=== PATIENT | male | born 1965 | race Caucasian/White ===

== ENCOUNTER 2016-10-11 21:40 | Emergency (ER) | payer OTHER ==
[2016-10-11] MEDS ORDERED: FLUORESCEIN SODIUM 1 MG STRIP OP ONE ×2 (22:00→22:05)
[2016-10-11] MEDS ORDERED: PROPARACAINE 0.5% 15 ML OPHT DROP ONE (22:01)
--- NOTE | 2016-10-11 22:05 | EDPHY ---
General Narrative: CHIEF COMPLAINT: Left middle finger laceration, left eye irritation HISTORY OF PRESENT ILLNESS: Patient complains of laceration to the left middle finger this sustained by a kitchen knife while cutting cheese for his dog. He was cutting when the knife slipped off the cheese and cut the left middle finger, on the radial side posteriorly. Mildly painful. No bleeding at this time. No numbness. Second complaint of left eye irritation. He was cleaning his grill just prior to this when something flew up into his left eye. He feels that was part of the debris from the top the grow. He feels that there is a presence than left eye from this. No difficulty with vision with some eye irritation. No difficulty moving the finger. The laceration does involve the left middle fingernail. Minimal bleeding. Tetanus is up-to-date less than 3 years ago. No other associated complaints or modifying factors. REVIEW OF SYSTEMS: Ten systems reviewed and are negative unless otherwise noted in the HPI PAST MEDICAL HISTORY: Denies any ongoing medical history PAST SURGICAL HISTORY: None SOCIAL HISTORY: Nonsmoker. Lives here locally FAMILY HISTORY: Noncontributory EXAMINATION General Appearance: Alert, no distress Head: normocephalic, atraumatic Eyes: Pupils equal and round, no conjunctival pallor. Mild left conjunctival injection. EOMs intact Cardiovascular: Regular rate. Symmetric radial pulses bilaterally 2+. Neurological: A&O, nonfocal, normal gait. Strength symmetric in both limbs. No wrist drop Skin: Warm and dry, no rash. Superficial laceration to left middle finger distal phalanx involving the nail. This is approximately 0.5 cm in total length. No foreign body. Neurovascular intact Extremities: Mild tenderness of the left middle finger distal phalanx. Range of motion is intact and symmetric. Psychiatric: Mood and affect normal Eye exam: There is small area of fluorescein uptake on the left conjunctiva at 3 o'clock. This is outside the visual field. There is no rust ring. There was a small piece of black debris on the left upper eyelid mucosa. This was easily removed with a sterile cotton swab. There was no rust ring. Lids were everted. DIFFERENTIAL DIAGNOSES: Including but not limited to laceration, abrasion, conjunctival abrasion, corneal abrasion, ocular foreign body MDM: 10:00 p.m. Superficial laceration to distal phalanx of the left middle finger with possible conjunctival or corneal abrasion of the left eye. I have blocked the affected finger. Proceed with irrigation re-evaluation. I will stain the left eye to look for abrasion or foreign body. 10:25 p.m. Finger has been irrigated and I do not appreciate any laceration that needs to be suture repair. I have stain the eye and there is a superficial corneal abrasion to the left of the field of view. There was also 1 small piece of foreign body on the left upper eyelid that was easily removed with a sterile swab. No rust ring. Visual alicea intact. Discharged home with Ocuflox prophylaxis the left eye. We also discussed simple wound care for the left middle finger laceration that does not need to be suture repaired. Follow up with healthcare network consultant. ED precautions discussed. Tetanus is up-to-date. - History Smoking Status: Never smoked - Objective Vital Signs: Initial Vital Signs Temperature (C) 98.4 F 10/11/16 21:44 Heart Rate 63 10/11/16 21:44 Respiratory Rate 18 10/11/16 21:44 Blood Pressure 156/97 H 10/11/16 21:44 O2 Sat (%) 96 10/11/16 21:44 O2 Delivery Mode Room Air Allergies/Adverse Reactions: gabapentin [From Neurontin] Allergy (Verified 10/11/16 21:44) Penicillins Allergy (Verified 10/11/16 21:44) tdap Allergy (Uncoded 10/11/16 21:48) Home Medications: Medication Instructions Recorded NK [No Known Home Meds] 10/11/16 Medications Given: Discontinued Medications Fluorescein Sodium (Psobv-D-Mazqd) 1 mg OP EDNOW ONE Stop: 10/11/16 22:06 Last Admin: 10/11/16 22:09 Dose: 1 mg Ofloxacin (Ocuflox 0.3% Opht Drops Prepack) 1 btl TAKEHOME EDNOW ONE Stop: 10/11/16 22:32 Last Admin: 10/11/16 22:52 Dose: 1 btl Proparacaine HCl (Alcaine 0.5%) 1 drops OP EDNOW ONE Stop: 10/11/16 22:07 Last Admin: 10/11/16 22:09 Dose: 1 drop Departure - Departure Disposition: Home, Routine, Self-Care Clinical Impression: Foreign body of eyelid, left Abrasion of conjunctiva, left Qualifiers: Encounter type: initial encounter Qualified Code(s): S05.02XA - Injury of conjunctiva and corneal abrasion without foreign body, left eye, initial encounter Laceration of left middle finger with damage to nail Qualifiers: Encounter type: initial encounter Foreign body presence: without foreign body Qualified Code(s): S61.313A - Laceration without foreign body of left middle finger with damage to nail, initial encounter Condition: Good Instructions: Ofloxacin (Into the eye), Laceration (ED), Laceration Without Closure (ED) Additional Instructions: 1. Wound care as discussed 2. Left eye drops as discussed 3. Follow up with healthcare network consultant for definitive care Referrals: NONE *PRIMARY CARE P,. [Primary Care Provider] - As per Instructions Rufino Welsh MD [Medical Doctor] - As per Instructions
[2016-10-11] MEDS ORDERED: PROPARACAINE 0.5% 15 ML OPHT DROP OP ONE (22:06)
[2016-10-11] MEDS ORDERED: OFLOXACIN 0.3% SOLN PREPACK OPHT.BTL TAKEHOME ONE (22:31)
[2016-10-11 22:56] VITALS: BP 136/90; PULSE 57; RESP 16; TEMP 98.1; O2SAT 94
== END 2016-10-11 22:56 | disposition home or self-care (01) ==
PROC: 08C1XZZ Extirpation of Matter from Left Eye, External Approach (ICD-10-PCS; principal; 2016-10-11)
DX: S61.313A Laceration without foreign body of left middle finger with damage to nail, initial encounter (principal); T15.12XA Foreign body in conjunctival sac, left eye, initial encounter; W26.0XXA Contact with knife, initial encounter; Y99.8 Other external cause status; Y93.89 Activity, other specified